=== PATIENT | male | born 1955 | race Two or more races ===

== ENCOUNTER → 2016-12-18 | Outpatient (CLI) | payer OTHER ==
[~2016-12-18] MED LIST: ERYT1O LEFT EYE
--- NOTE | 2016-12-18 12:22 | RADRPT ---
EXAM DATE/TIME: 12/18/2016 11:55 [place] COMPARISON: No previous studies available for comparison. INDICATIONS : Chronic low back pain, no known injuries. MEDICAL HISTORY : None. SURGICAL HISTORY : None. ENCOUNTER: Initial ACUITY: 1 day PAIN SCORE: 8/10 LOCATION: Bilateral FINDINGS: There are five non-rib bearing vertebral bodies. The vertebral bodies are in normal alignment withou t evidence of subluxation or scoliosis. There is minimal disc space narrowing at the L3-L4 through L 5-S1 levels. There is a vacuum phenomenon at the L3-L4 and L5-S1 levels. There is mild facet hypertro phy at the L4-L5 and L5-S1 levels. The sacroiliac joints are intact. Bony mineralization is normal. No fracture is identified. CONCLUSION: Mild degenerative change. Jose Elias tS MD on December 18, 2016 at 12:19 Board Certified Radiologist. This report was verified electronically.
== END ==
LOC: HRAD 11:36
DX: M54.30 Sciatica, unspecified side (principal)
CPT/HCPCS: 72110

== ENCOUNTER → 2017-05-15 | Day surgery (SDC) | payer OTHER ==
[~2017-05-15] MED LIST changes: +CHLORHEXIDINE GLUCONATE 2 % 1 PACK (2 CLOTHS) TOPICAL PRN; +ENAL2.5T PO; +INSULIN HUMAN REGULAR 1,000 UNITS/10 ML VIAL SQ PRN; +LACTATED RINGER'S 1000 ML IV PRN; +METOPROLOL TARTRATE 25 MG TAB PO PRN; +POVIDONE IODINE 5% (ANTISEPSIS KIT) 4 APPLICATIONS EACH NARE PRN; +PROPOFOL 500 MG/50 ML INJ 50 ML ONE; +SODIUM CHLORID 0.9% 500 ML IV PRN
--- NOTE | 2017-05-15 12:22 | GIPROC ---
[facility] [address] [facility]. [facility], [address] COLONOSCOPY PROCEDURE REPORT EXAM DATE: 05/15/2017 PATIENT NAME: César Blackwell MR #: [id number] BIRTHDATE: 1955 ENDOSCOPIST: Ian Jovel MD ORDER #: [id number] MANNEQUIN WIG MAKER: Reji Subramanian and Dejah Garcia STATUS: outpatient INDICATIONS: The patient is a 61 yr old male here for a colonoscopy due to screening; average risk PROCEDURE PERFORMED: colonoscopy MEDICATIONS: Per Anesthesia. PREP QUALITY: good ESTIMATED BLOOD LOSS: None CONSENT: The patient understands the risks and benefits of the procedure and understands that these risks include, but are not limited to: sedation, allergic reaction, infection, perforation and/or bleeding. Alternative means of evaluation and treatment include, among others: physical exam, x-rays, and/or surgical intervention. The patient elects to proceed with this endoscopic procedure. medical equipment was checked for proper function. Hand hygiene and appropriate measures for infection prevention was taken. After the risks, benefits and alternatives of the procedure were thoroughly explained, Informed consent was verified, confirmed and timeout was successfully executed by the treatment team. A digital exam revealed no abnormalities The Pentax EC-[id number] endoscope was introduced through the anus and advanced to the cecum, which was identified by both the appendix and ileocecal valve. The instrument was then slowly withdrawn as the colon was fully examined. Normal exam; no polyps or diverticuli noted. The scope was then completely withdrawn from the patient and the procedure terminated. ADVERSE EVENTS: There were no complications. IMPRESSIONS: 1. Normal colonoscopy 2. Normal colonoscopy RECOMMENDATIONS: Resume prior diet and medications RECALL: Repeat colonoscopy in ten years. Ian Jovel MD eSigned: Ian Jovel MD 05/15/2017 12:22 PM cc: Derrick
--- NOTE | 2017-05-15 12:22 | GIPROC ---
[facility] [address] [facility]. [facility], [address] COLONOSCOPY PROCEDURE REPORT EXAM DATE: 05/15/2017 PATIENT NAME: César Blackwell MR #: [id number] BIRTHDATE: 1955 ENDOSCOPIST: Ian Jovel MD ORDER #: [id number] ACID LOADER: Reji Subramanian and Dejah Garcia STATUS: outpatient INDICATIONS: The patient is a 61 yr old male here for a colonoscopy due to screening; average risk PROCEDURE PERFORMED: colonoscopy MEDICATIONS: Per Anesthesia. PREP QUALITY: good ESTIMATED BLOOD LOSS: None CONSENT: The patient understands the risks and benefits of the procedure and understands that these risks include, but are not limited to: sedation, allergic reaction, infection, perforation and/or bleeding. Alternative means of evaluation and treatment include, among others: physical exam, x-rays, and/or surgical intervention. The patient elects to proceed with this endoscopic procedure. medical equipment was checked for proper function. Hand hygiene and appropriate measures for infection prevention was taken. After the risks, benefits and alternatives of the procedure were thoroughly explained, Informed consent was verified, confirmed and timeout was successfully executed by the treatment team. A digital exam revealed no abnormalities The Pentax EC-[id number] endoscope was introduced through the anus and advanced to the cecum, which was identified by both the appendix and ileocecal valve. The instrument was then slowly withdrawn as the colon was fully examined. Normal exam; no polyps or diverticuli noted. The scope was then completely withdrawn from the patient and the procedure terminated. ADVERSE EVENTS: There were no complications. IMPRESSIONS: 1. Normal colonoscopy 2. Normal colonoscopy RECOMMENDATIONS: Resume prior diet and medications RECALL: Repeat colonoscopy in ten years. Ian Jovel MD eSigned: Ian Jovel MD 05/15/2017 12:22 PM cc: Derrick
--- NOTE | 2017-05-15 12:22 | GIPROC ---
[facility] [address] [facility]. [facility], [address] COLONOSCOPY PROCEDURE REPORT EXAM DATE: 05/15/2017 PATIENT NAME: César Blackwell MR #: [id number] BIRTHDATE: 1955 ENDOSCOPIST: Ian Jovel MD ORDER #: [id number] RAISE MINER: Reji Subramanian and Dejah Garcia STATUS: outpatient INDICATIONS: The patient is a 61 yr old male here for a colonoscopy due to screening; average risk PROCEDURE PERFORMED: colonoscopy MEDICATIONS: Per Anesthesia. PREP QUALITY: good ESTIMATED BLOOD LOSS: None CONSENT: The patient understands the risks and benefits of the procedure and understands that these risks include, but are not limited to: sedation, allergic reaction, infection, perforation and/or bleeding. Alternative means of evaluation and treatment include, among others: physical exam, x-rays, and/or surgical intervention. The patient elects to proceed with this endoscopic procedure. medical equipment was checked for proper function. Hand hygiene and appropriate measures for infection prevention was taken. After the risks, benefits and alternatives of the procedure were thoroughly explained, Informed consent was verified, confirmed and timeout was successfully executed by the treatment team. A digital exam revealed no abnormalities The Pentax EC-[id number] endoscope was introduced through the anus and advanced to the cecum, which was identified by both the appendix and ileocecal valve. The instrument was then slowly withdrawn as the colon was fully examined. Normal exam; no polyps or diverticuli noted. The scope was then completely withdrawn from the patient and the procedure terminated. ADVERSE EVENTS: There were no complications. IMPRESSIONS: 1. Normal colonoscopy 2. Normal colonoscopy RECOMMENDATIONS: Resume prior diet and medications RECALL: Repeat colonoscopy in ten years. Ian Jovel MD eSigned: Ian Jovel MD 05/15/2017 12:22 PM cc: Derrick
[2017-05-15 12:42] VITALS: BP 132/69; PULSE 70; RESP 18; O2SAT 99
--- NOTE | 2017-05-15 21:04 | EKG ---
Date Performed: 05/15/2017 Time Performed: 10:44:45 PTAGE: 61 years EKG: Sinus rhythm NORMAL ECG NO PREVIOUS TRACING DOCTOR: César Mcguire Interpretating Date/Time 05/15/2017 21:03:26
--- NOTE | 2017-05-15 21:04 | EKG ---
Date Performed: 05/15/2017 Time Performed: 10:44:45 PTAGE: 61 years EKG: Sinus rhythm NORMAL ECG NO PREVIOUS TRACING DOCTOR: César Mcguire Interpretating Date/Time 05/15/2017 21:03:26
--- NOTE | 2017-05-15 21:04 | EKG ---
Date Performed: 05/15/2017 Time Performed: 10:44:45 PTAGE: 61 years EKG: Sinus rhythm NORMAL ECG NO PREVIOUS TRACING DOCTOR: César Mcguire Interpretating Date/Time 05/15/2017 21:03:26
== END | disposition home or self-care (01) ==
LOC: HSDC 09:16
DX: Z12.11 Encounter for screening for malignant neoplasm of colon (principal); I10 Essential (primary) hypertension
CPT/HCPCS: 00810; 45378; 93005; J7120